=== PATIENT | male | born 1955 | race Caucasian/White ===

== ENCOUNTER 2020-09-11 11:08 | Emergency (ER) | payer BC, SELFPAY ==
--- NOTE | ~2020-09-11 | XR_ITS ---
EXAMINATION: XR chest 1V portable 09/11/2020 12:07 INDICATION: Shortness of breath PROCEDURE: AP portable chest COMPARISON: No prior studies for comparison. FINDINGS: The lungs are clear. Shallow inspiration with crowding of the pulmonary vessels. The cardio mediastinal silhouette is within normal limits. There are no pleural effusions. There is no pneumot horax suspected. IMPRESSION: 1: NO ACUTE CARDIOPULMONARY DISEASE. Reviewed, dictated and finalized at location B.
[2020-09-11 11:20] VITALS: BP 124/82; PULSE 101; RESP 18; TEMP 37; O2SAT 97
--- NOTE | 2020-09-11 11:38 | ECG_ITS ---
Measurements Intervals [place] Rate: 94 P: MD: 0 QRS: -9 QRSD: 86 T: -39 QT: 341 QTc: 427 Interpretive Statements ATRIAL FIBRILLATION CONSIDER INFERIOR INFARCT, AGE INDETERMINATE ABNORMAL ECG Electronically Signed On 09-11-2020 13:12:51 CDT by Carlo Ramey D.O.
[2020-09-11 12:23] VITALS: BP 105/75; PULSE 90; RESP 18; O2SAT 92
[2020-09-11 12:29] LABS: Hematocrit 45.9 % (42.0-52.0); Hemoglobin 15.5 g/dL (14.0-18.0); Lymphocytes Absolute Auto 0.67 K/mm3 (0.9-3.2); Lymphocytes Percent Auto 18.8 % (18.3-44.2); Mean Corpuscular HGB Conc 33.8 g/dl (32-36); Mean Corpuscular Hemoglobin 31.2 pg (26-34); Mean Corpuscular Volume 92.4 fl (80-100); Mean Platelet Volume 10.5 fl (7.4-10.4); Monocytes Absolute Auto 0.3 K/mm3 (0.1-0.6); Monocytes Percent Auto 7.3 % (2.6-8.5); Neutrophils Absolute Auto 2.6 K/mm3 (1.3-6.7); Neutrophils Percent Auto 73.9 % (45.5-73.1); Platelet Count Result 160 k/mm3 (150-375); Red Blood Count 4.97 M/mm3 (4.6-6.20); Red Cell Distribution Width 12.8 % (11.5-14.5); White Blood Count 3.6 K/mm3 (4.5-10.0)
[2020-09-11 12:41] LABS: Anion Gap 8 mmol/L (8-16); Blood Urea Nitrogen 20 mg/dL (9-20); Calcium 8.6 mg/dL (8.4-10.2); Carbon Dioxide 26 mmol/L (22-30); Chloride 100 mmol/L (98-107); Estimated Glomerular Filt Rate > 60; Glucose 143 mg/dL (75-110); Potassium 3.7 mmol/L (3.4-5.0); Sodium 134 mmol/L (137-145)
[2020-09-11 12:48] LABS: NT Pro B Type Natriuretic Pept 458 PG/ML (5-100)
[2020-09-11 13:18] VITALS: BP 107/88; PULSE 85; RESP 16; O2SAT 94
--- NOTE | 2020-09-11 13:19 | ED.GENADULT ---
HPI - General Adult General Chief complaint: Upper Respiratory Infection Stated complaint: COVID + O2 SAT 91% Time Seen by Provider: 09/11/20 11:20 History of Present Illness HPI narrative: Patient is a 64-year-old male who presents ER with complaints of shortness of breath and fatigue. Patient reports that he was diagnosed with COVID-19 on 09/04/2020 and was having symptoms a couple days prior to that. Reports he started feeling some improvement despite having cycles of fever and chills. Reports his temperature rises above 100 ?F at times. Reports over the last 2 days he started feeling much more weak fatigued and short of breath. Related Data Home Medications Medication Instructions Recorded Confirmed amlodipine 09/11/20 hydrochlorothiazide 09/11/20 nebivolol [Bystolic] mg 09/11/20 Allergies Allergy/AdvReac Type Severity Reaction Status Date / Time Tetracyclines Allergy Unknown TAKES MY Verified 09/11/20 11:24 BREATH AWAY Review of Systems Review of Systems: All systems reviewed & are unremarkable except as noted in HPI and below Constitutional: Constitutional: Reports chills, Reports fatigue and Reports fever(s) ENT: Reports nasal congestion and Denies sore throat Cardiovascular: Cardiovascular: Denies chest pain, Denies rapid heart rate and Denies radiating jaw, neck or arm pain Respiratory: Respiratory: Denies cough, Reports dyspnea and Denies wheezing Gastrointestinal: Gastrointestinal: Denies abdominal pain, Denies nausea and Denies vomiting PMFSH Past Medical History Medical History (Updated 09/11/20 @ 14:20 by Reyes Freeman MD) Hypertension Surgical History Surgical History (Updated 09/11/20 @ 14:16 by Reyes Freeman MD) No significant past surgical history Social History Social History (Updated 09/11/20 @ 14:16 by Reyes Freeman MD) Smoking status: Never smoker Gender identity (if verbalized by the patient): Male Exam Narrative: Exam Narrative: GENERAL: Well-appearing, well-nourished, and in no acute distress. HEAD: Normocephalic, atraumatic. CHEST: Clear to auscultation. No respiratory distress. HEART: Irregular regular rate and rhythm. Normal peripheral pulses. ABDOMEN: Soft, nontender, nondistended. EXTREMITIES: Normal range of motion. No edema. SKIN: Warm, dry, no rash. NEURO: Alert and oriented x3. PSYCH: Normal mood and affect. Course Course Emergency Course: Patient resting comfortably. Informed of diagnosis of atrial fibrillation. This may be related to his COVID-19 infection is a has been known to cause structural issues with heart. Additionally due to the COVID-[address] discussing with Dr[address] Shea it is felt patient is at a higher risk for formation of a blood clot. Therefore he should be started on Xarelto 20 mg daily. Educated patient on medication side effects. Discussed return precautions. Patient verbalized understanding. Cardiology office will contact him to schedule follow-up appointment. Vital Signs Vital signs: Vital Signs Temperature 98.6 F 09/11/20 11:20 Pulse Rate 101 H 09/11/20 11:20 Respiratory Rate 18 09/11/20 11:20 Blood Pressure 124/82 09/11/20 11:20 Pulse Oximetry 97 09/11/20 11:20 Temperature 98.6 F 09/11/20 11:20 Pulse Rate 83 09/11/20 14:00 Respiratory Rate 18 09/11/20 14:00 Blood Pressure 118/72 09/11/20 14:00 Pulse Oximetry 94 09/11/20 14:00 Medical Decision Making Vital Signs Vital Signs: Vital Signs Temperature 98.6 F 09/11/20 11:20 Pulse Rate 101 H 09/11/20 11:20 Respiratory Rate 18 09/11/20 11:20 Blood Pressure 124/82 09/11/20 11:20 Pulse Oximetry 97 09/11/20 11:20 Temperature 98.6 F 09/11/20 11:20 Pulse Rate 83 09/11/20 14:00 Respiratory Rate 18 09/11/20 14:00 Blood Pressure 118/72 09/11/20 14:00 Pulse Oximetry 94 09/11/20 14:00 Lab Data Result diagrams: 09/11/20 12:16 09/11/20 12:16
[2020-09-11 14:00] VITALS: BP 118/72; PULSE 83; RESP 18; O2SAT 94
[2020-09-11 14:40] VITALS: BP 123/96; PULSE 99; RESP 23; O2SAT 95
== END 2020-09-11 14:41 | disposition home or self-care (01) ==
PROVIDERS: Emergency Provider Emergency Medicine; PCP Internal Medicine
DX: I48.91 Unspecified atrial fibrillation (principal); Z09 Encounter for follow-up examination after completed treatment for conditions other than malignant neoplasm; I10 Essential (primary) hypertension; Z86.19 Personal history of other infectious and parasitic diseases
CPT/HCPCS: 36415; 71045; 80048; 83880; 85025; 93005; 99283

== ENCOUNTER 2025-05-07 14:36 | Outpatient (CLI) | payer MEDICARE, SELFPAY ==
--- NOTE | ~2025-05-07 | US_ITS ---
EXAM: RENAL ULTRASOUND HISTORY: Disorder of kidney and ureter COMPARISON: None FINDINGS: RIGHT KIDNEY: 6.5 x 12.3 x 6.5 cm. The parenchyma of the right kidney is increased in echogenicity. A single rounded avascular anechoic focus is present within the upper pole of the right kidney measur ing 43 mm in greatest dimension, consistent with a simple cyst for which no further follow-up is need ed. No hydronephrosis or bulky renal calculi. LEFT KIDNEY: 5.8 x 12.8 x 5.2 cm No hydronephrosis or renal calculi. The parenchyma of the left kidney is increased in echogenicity. BLADDER: Only minimally distended, and otherwise unremarkable. IMPRESSION: No hydronephrosis or renal calculi. Findings suggesting medical renal disease. Simple cyst within the right kidney, as detailed above. Reviewed, dictated and finalized at location A.
--- OUTSIDE RECORDS SUMMARY | 2025-05-07 15:46 | XMS_ITS | Clinical Summary ---
Author Organization [facility] Facility Address [address] [address] Care Team Providers Care Pusher Runner Name Role Phone Lukas Hastings MD Primary Care Provider [phone] Encounters Date Type Department Care Team Description 04/12/2025 Documentation Only [facility], [address] [id number] Donna Suarez MD 04/11/2025 Documentation Only [address] [id number] Donna Suarez MD from Last 3 Months Social History Tobacco Use Types Packs/Day Years Used Date Smoking Tobacco: Never Assessed Sex and Gender Information Value Date Recorded Sex Assigned at Not on file Legal Sex Male 9:47 AM EDT Gender Identity Not on file Sexual Orientation Not on file Plan of Treatment Upcoming Encounters Date Type Department Care Team (Late st Contact Info) Description 05/14/2025 10:30 AM CDT Office Visit [address] [phone] Satnam Saldivar MD [address] [place] [phone] Health Maintenance Due Date Last Done Comments Colorectal Cancer Screening: Annual FOBT 2004 Colorectal Cancer Screening: Colonoscopy 2004 Colorectal Cancer Screening: Sigmoidoscopy 2004 Pneumococcal Vaccine: 50+ Ye ars (2 of 2 - PPSV23, PCV20, or PCV21) 08/20/2022 06/25/2022 Influenza Vaccine (Season Ended) 2025 09/16/20 19 Hepatitis B Vaccine Aged Out No longe r eligible based on patient's age to complete this topic Insurance [facility] Medicare Care Teams Pusher Runner Relationship Specialty Start Date End Date Lukas Hastings MD [address] [place] [address] PCP - General Internal Medicine 04/11/25
--- OUTSIDE RECORDS SUMMARY | 2025-05-07 15:46 | XMS_ITS | CONTINUITY OF CARE DOCUMENT ---
Author Name tyrellroshantyrellroshan Address Unknown Organization [facility] Address [address] [place] [address] Phone [phone] Care Team Providers Care Noteman Name Role Phone Juan Chapa MD Unavailable Venkata Gaytan MD Unavailable [phone] Venkata Gaytan MD Unavailable [phone] PROBLEMS Condition Status Date Provider Notes SWATI, mild active Juan katz Study - Mild SWATI - needs titration study. SK HTN active Tades Katz Coronavirus positive 08/2020 active Tades Katz Atrial fibrillation active Taeds Katz Shortness of breath active Viola Katz Cardiology examination active Tades Katz Hyperlipidemia active Viola Katz Snoring completed - Chinmay Roberts ENCOUNTERS Date Type Provider Location Encounter Diag nosis - In-person encounter Office Visit Juan Chapa MD [facility] [place] [facility] Snoring - In-person encounter Office Visit Juan Chapa MD [place] [facility] - In-person encounter Office Visit [facility] - In-person encounter Office Visit Juan Chapa MD [place] [facility] Hyperlipidemia - In-person encounter Office Visit Juan Chapa MD [place] [facility] HTNCoronavirus positive 08/2020Atrial fibrillationShortness of breathCardiology examination VITAL SIGNS Date Observation Value Provider Body Mass Index (Ratio) 36.48 kg/m2 Kian Chapa MD weight E&M 269 [lb_av] Christopher Destin al blood pressure, diastolic 72 mm[Hg] Li nkLogic blood pressure, systolic 112 mm[Hg] Marilou kLogic blood pressure, cuff size large Ke rri Gruenenfelder blood pressure, diastolic 72 mm[Hg] Ke rri Gruenenfelder blood pressure, systolic 112 mm[Hg] Ker ri Gruenenfelder oxygen saturation, oximetry 96 % Marie Grdarrellnenfelder respiratory rate E&M 14 /min Marie G gaetanoenenfelder pulse rate 57 /min Marie Grminae er weight E&M 269 [lb_av] Marie Grrosarionfe lder height E&M 72 [in_i] Marie Grdarrellnenfe er Body Mass Index (Ratio) 37.97 kg/m2 [facility] blood pressure, cuff size large Ke rri Gruenenfelder blood pressure, diastolic 86 mm[Hg] Ke rri Gruenenfelder blood pressure, systolic 142 mm[Hg] Ker ri Gruenenfelder oxygen saturation, oximetry 96 % Marie Gruenenfelder respiratory rate E&M 16 /min Marie G gaetanoenenfelder pulse rate 59 /min Marie Grrosarionfe lder weight E&M 280 [lb_av] Marie Gruenenfe lder height E&M 72 [in_i] Marie Gruenenfe [facility] Body Mass Index (Ratio) 35.94 kg/m2 Kian Chapa MD pulse rate 65 /min [facility] blood pressure, diastolic 70 mm[Hg] [facility], systolic 128 mm[Hg] Temitope ttany [facility] oxygen saturation, oximetry 97 % [facility] weight E&M 265 [lb_av] [facility] blood pressure, resting Yes [facility] respiratory rate E&M 16 /min [facility] height E&M 72 [in_i] [facility] Body Mass Index (Ratio) 35.67 kg/m2 [facility] blood pressure, cuff size large Ke rri Gruenenfelder blood pressure, diastolic 70 mm[Hg] Ke rri Gruenenfelder blood pressure, systolic 130 mm[Hg] Ker ri Gruenenfelder oxygen saturation, oximetry 98 % Marie Gruenenfelder respiratory rate E&M 16 /min Marie G ruenenfelder pulse rate 78 /min Marie Gruenenfe [facility] weight E&M 263 [lb_av] Marie Gruenenfe [facility] height E&M 72 [in_i] Marie Gruenenfe [facility] Body Mass Index (Ratio) 35.80 kg/m2 [facility] blood pressure, cuff size large Ke rri Gruenenfelder blood pressure, diastolic 60 mm[Hg] Ke rri Gruenenfelder blood pressure, systolic 100 mm[Hg] Ker ri Gruenenfelder oxygen saturation, oximetry 97 % Marie Gruenenfelder respiratory rate E&M 18 /min Marie G ruenenfelder pulse rate 61 /min Marie Gruenenfe er weight E&M 264 [lb_av] Marie Mercedes lder height E&M 72 [in_i] Marie Mercedes er ALLERGIES Allergy Name Onset Date Reaction Criticality Status TETRACYCLINE Low Criticality active RESULTS Date Observation Value Provider Reference Range Interpretation Location magnesium, serum 2.1 mg/dL [facility] 1.6-2.3 lipoprotein, beta, serum, point, quantitative, calculated 78 mg/dL [facility] 0-99 HDL cholesterol, serum 51 mg/dL [facility] >39 triglyceride, serum, random 64 mg/dL [facility] 0-149 cholesterol, serum 142 mg/dL [facility] [phone]/05/0 6 platelet count 213 X10E3/UL [facility] [phone]/05/0 6 red blood cell distribution width 12.6 % [facility] 11.6-15.4 mean corpuscular hemoglobin concentration, RBC 34.2 G/DL [facility] 31.5-35.7 mean corpuscular hemoglobin, RBC 31.7 pg [facility] 26.6-33.0 mean corpuscular volume, RBC 93 fL [facility] 79-97 hematocrit, blood 44.7 % [facility] 37.5-51.0 hemoglobin, blood 15.3 g/dL [facility] 13.0-17.7 erythrocyte (RBC) count 4.82 X10E6/UL [facility] 4.14-5.80 leukocyte count, blood 4.6 X10E3/UL [facility] 3.4-10.8 alanine aminotransferase (SGPT), serum 40 1/L [facility] 0-44 aspartate aminotransferase (SGOT), serum 33 1/L [facility] 0-40 alkaline phosphatase, serum 72 1/L [facility] 39-117 bilirubin, serum, total 0.7 mg/dL [facility] 0.0-1.2 albumin/globulin ratio, serum 1.6 [facility] 1.2-2.2 globulin, serum 2.8 [facility] 1.5-4.5 albumin, serum 4.4 g/dL [facility] 3.8-4.8 protein, total, serum 7.2 g/dL [facility] 6.0-8.5 calcium, serum 9.6 mg/dL [facility] 8.6-10.2 carbon dioxide, venous blood 26 mmol/L [facility] 20-29 chloride, serum 100 mmol/L [facility] 96-106 potassium, serum 4.2 mmol/L [facility] 3.5-5.2 sodium, serum 138 mmol/L [facility] [phone]/05/0 6 urea nitrogen/creatinine ratio, serum 20 [facility] 10-24 eGFR if 68 mL/min/{1 .73_m2} [facility] >59 eGFR if not 59 mL/min/{1 .73_m2} [facility] >59 Low creatinine, serum 1.27 mg/dL [facility] 0.76-1.27 urea nitrogen, blood 25 mg/dL [facility] 8-27 blood glucose, random 92 mg/dL [facility] 65-99 thyroid stimulating hormone, serum 1.560 u[IU]/mL [facility] 0.450-4.500 lipoprotein, beta, serum, point, quantitative, calculated 162 mg/dL [facility] 0-99 High HDL cholesterol, serum 50 mg/dL [facility] >39 triglyceride, serum, random 87 mg/dL [facility] 0-149 cholesterol, serum 227 mg/dL [facility] 100-199 High basophil count, absolute 0.0 x10E3/uL [facility] 0.0-0.2 Eosinophil Absolute Count 0.0 X10E3/UL [facility] 0.0-0.4 monocyte count, blood, automated 0.4 X10E3/UL [facility] 0.1-0.9 lymphocyte count, blood, automated 1.2 X10E3/UL [facility] 0.7-3.1 6 Absolute Neutrophils 2.5 X10E3/UL [facility] 1.4-7.0 6 basophils as percent of blood leukocytes 1 % [facility] Not Estab. 6 eosinophils as percent of blood leukocytes 1 % [facility] Not Estab. 6 monocytes as percent of blood leukocytes 9 % [facility] Not Estab. 6 lymphocytes as percent of blood leukocytes 28 % [facility] Not Estab. 6 neutrophils as percent of blood leukocytes 61 % [facility] Not Estab. 6 platelet count 290 X10E3/UL [facility] [phone]/11/0 6 red blood cell distribution width 12.8 % [facility] 11.6-15.4 6 mean corpuscular hemoglobin concentration, RBC 32.7 G/DL [facility] 31.5-35.7 6 mean corpuscular hemoglobin, RBC 30.7 pg [facility] 26.6-33.0 6 mean corpuscular volume, RBC 94 fL [facility] 79-97 6 hematocrit, blood 45.5 % [facility] 37.5-51.0 hemoglobin, blood 14.9 g/dL [facility] 13.0-17.7 erythrocyte (RBC) count 4.85 X10E6/UL [facility] 4.14-5.80 6 leukocyte count, blood 4.2 X10E3/UL [facility] 3.4-10.8 6 alanine aminotransferase (SGPT), serum 39 1/L [facility] 0-44 6 aspartate aminotransferase (SGOT), serum 22 1/L [facility] 0-40 6 alkaline phosphatase, serum 50 1/L [facility] 39-117 6 bilirubin, serum, total 0.9 mg/dL [facility] 0.0-1.2 6 albumin/globulin ratio, serum 1.5 [facility] 1.2-2.2 6 globulin, serum 2.7 [facility] 1.5-4.5 6 albumin, serum 4.0 g/dL [facility] 3.8-4.8 6 protein, total, serum 6.7 g/dL [facility] 6.0-8.5 6 calcium, serum 9.7 mg/dL [facility] 8.6-10.2 6 carbon dioxide, venous blood 24 mmol/L [facility] 20-29 6 chloride, serum 103 mmol/L [facility] 96-106 6 potassium, serum 5.5 mmol/L [facility] 3.5-5.2 High 6 sodium, serum 140 mmol/L [facility] [phone]/11/0 6 urea nitrogen/creatinine ratio, serum 14 [facility] 10-24 6 eGFR if 70 mL/min/{1 .73_m2} [facility] >59 6 eGFR if not 60 mL/min/{1 .73_m2} [facility] >59 6 creatinine, serum 1.25 mg/dL [facility] 0.76-1.27 6 urea nitrogen, blood 18 mg/dL [facility] 8-27 6 blood glucose, random 91 mg/dL [facility] 65-99 HISTORY OF MEDICATION USE Medication Status Instructions Dates Provider Indications Com ments atorvastatin 40 mg tablet active Take 1 tablet by mouth once a day Marie Vyas flecainide 100 mg tablet active 1 tablet by mouth twice a day Viola Katz magnesium oxide 400 mg (241.3 mg magnesium) tablet active Take 1 tablet by mouth twice a day Marie Vyas amlodipine 10 mg tablet active 1 tablet by mouth once a day Marie Asael Bystolic 10 mg tablet active 1 tablet b y mouth once a day Marie Asael hydrochlorothiazide 25 mg tablet active once a day Marie Asael Xarelto 20 mg tablet active 1 tablet by mouth every night Marie Asael SOCIAL HISTORY Date Observation Value Provider number of grandchildren Juan Roberts social history E&M S moking History: Lynn everett has never smoked. Chinmay Roberts smoking status Never smoker Chinmay Roberts social history reviewed E&M revi ewed - no changes required Chinmay Roberts social history E&M S moking History: Lynn everett has never smoked. Viola Katz social history reviewed E&M revi ewed - no changes required Viola Katz smoking status Never smoker Marie andre social history reviewed E&M revi ewed - no changes required Chinmay Messer smoking status Never smoker Carolyne villa social history E&M S moking History: Lynn everett has never smoked. Viola Katz social history reviewed E&M revi ewed - no changes required Viola Katz smoking status Never smoker Marie andre social history E&M S moking History: Lynn everett has never smoked. Viola Katz social history reviewed E&M revi ewed - no changes required Viola Katz smoking status Never smoker Marie andre INSURANCE PROVIDERS Payer name Policy type / Coverage type [place] [employer] party ID [facility] MEDICARE COMPLETE HMO Other [id number] ADVANCE DIRECTIVES Name Date DISCUSSED - NO DECISION MADE TREATMENT PLAN Date Name Performer [id number],S, T he patient is using CPAP on a regular basis. The patient has been benefiting from therapy and should continue use. Chinmay Roberts [id number],S, I n sinus O K to take two additional tabs of flecainide (up to a TOTAL of 400mg a day including regular dose) on days when you feel out of rhythm. If you have to do this more than once a month, please give us a call so we can adjust your medications. telesetnry 03/2021 R hythm: Sinus Bradycardia w/AV Block 1 A verage Heart Rate was 55 bpm M inimum Heart Rate was 44 bpm M aximum Heart Rate was 83 bpm V entricular Ectopy was 0, with 0 V-Pairs and 0 V-Runs S upraVentricular Ectopy was 54, with 0 SV-Runs P auses more than 2.50 seconds were 0 His updated medication list for this problem includes: Bystolic 10 Mg Tablet (Nebivolol) ..... 1 tablet by mouth once a day Flecainide 100 Mg Tablet (Flecainide) ..... 1 tablet by mouth twice a day Chinmay Roberts [id number],B, B P today: 112/72 P rior BP: 142/86 (04/18/2021) H is updated medication list for this problem includes: Bystolic 10 Mg Tablet (Nebivolol) ..... 1 tablet by mouth once a day Amlodipine 10 Mg Tablet (Amlodipine) ..... 1 tablet by mouth once a day Hydrochlorothiazide 25 Mg Tablet (Hydrochlorothiazide) ..... Once a day Chinmay Zimmermatthew [id number],S, m ost recent LDL 78 03/2021 His updated medication list for this problem includes: Atorvastatin 40 Mg Tablet (Atorvastatin) ..... 1 tablet by mouth once a day Chinmay Zimmermatthew [id number],S, D LCO 96 on PFTS His updated medication list for this problem includes: Amlodipine Besylate 10 Mg Oral Tablet (Amlodipine besylate) ..... One tab by mouth daily Bystolic 10 Mg Oral Tablet (Nebivolol hcl) ..... One tab. daily Hydrochlorothiazide 25 Mg Oral Tablet (Hydrochlorothiazide) ..... Once a day Chinmay Roberts Electrophysiology: T he patient is using CPAP on a regular basis. The patient has been benefiting from therapy and should continue use. Chinmay Roberts Electrophysiology: I n sinus O K to take two additional tabs of flecainide (up to a TOTAL of 400mg a day including regular dose) on days when you feel out of rhythm. If you have to do this more than once a month, please give us a call so we can adjust your medications. telesetnry 03/2021 R hythm: Sinus Bradycardia w/AV Block 1 A verage Heart Rate was 55 bpm M inimum Heart Rate was 44 bpm M aximum Heart Rate was 83 bpm V entricular Ectopy was 0, with 0 V-Pairs and 0 V-Runs S upraVentricular Ectopy was 54, with 0 SV-Runs P auses more than 2.50 seconds were 0 His updated medication list for this problem includes: Bystolic 10 Mg Tablet (Nebivolol) ..... 1 tablet by mouth once a day Flecainide 100 Mg Tablet (Flecainide) ..... 1 tablet by mouth twice a day Chinmay Roberts Electrophysiology: B P today: 112/72 P rior BP: 142/86 (04/18/2021) H is updated medication list for this problem includes: Bystolic 10 Mg Tablet (Nebivolol) ..... 1 tablet by mouth once a day Amlodipine 10 Mg Tablet (Amlodipine) ..... 1 tablet by mouth once a day Hydrochlorothiazide 25 Mg Tablet (Hydrochlorothiazide) ..... Once a day Chinmay Roberts Electrophysiology: m ost recent LDL 78 03/2021 His updated medication list for this problem includes: Atorvastatin 40 Mg Tablet (Atorvastatin) ..... 1 tablet by mouth once a day Chinmay Roberts Electrophysiology: D LCO 96 on PFTS His updated medication list for this problem includes: Amlodipine Besylate 10 Mg Oral Tablet (Amlodipine besylate) ..... One tab by mouth daily Bystolic 10 Mg Oral Tablet (Nebivolol hcl) ..... One tab. daily Hydrochlorothiazide 25 Mg Oral Tablet (Hydrochlorothiazide) ..... Once a day Chinmay Zimmermatthew Electrophysiology Fo llow up 14: s odium restriction, weightloss and exercise advised B P today: 142/86 P rior BP: 128/70 (10/16/2020) Labs Reviewed: C reat: 1.27 (03/27/2021) C hol: 142 (03/27/2021) HDL: 51 (03/27/2021) His updated medication list for this problem includes: Amlodipine Besylate 10 Mg Oral Tablet (Amlodipine besylate) ..... One tab by mouth daily Bystolic 10 Mg Oral Tablet (Nebivolol hcl) ..... One tab. daily Hydrochlorothiazide 25 Mg Oral Tablet (Hydrochlorothiazide) ..... Once a day Orders: E KG (CPT-12191) Viola Katz Electrophysiology Fo llow up 14: m ost recent LDL 78 03/2021 His updated medication list for this problem includes: Atorvastatin Calcium 40 Mg Oral Tablet (Atorvastatin calcium) ..... One tab daily Viola Katz Electrophysiology Fo llow up 14: I n sinus O K to take two additional tabs of flecainide (up to a TOTAL of 400mg a day including regular dose) on days when you feel out of rhythm. If you have to do this more than once a month, please give us a call so we can adjust your medications. telesetnry 03/2021 R hythm: Sinus Bradycardia w/AV Block 1 A verage Heart Rate was 55 bpm M inimum Heart Rate was 44 bpm M aximum Heart Rate was 83 bpm V entricular Ectopy was 0, with 0 V-Pairs and 0 V-Runs S upraVentricular Ectopy was 54, with 0 SV-Runs P auses more than 2.50 seconds were 0 His updated medication list for this problem includes: Flecainide Acetate 100 Mg Oral Tablet (Flecainide acetate) ..... One tab twice a day Bystolic 10 Mg Oral Tablet (Nebivolol hcl) ..... One tab. daily Viola [place] Electrophysiology Fo llow up 14: O rders: S pieter Study Home (CPT-20273) Josedes [facility] Cardiology: O rders: 9 12 Minor (CPT-06916) L IPID PANEL (7600) C OMPREHENSIVE METABOLIC PANEL, W/EGFR (75115) C BC (H/H, RBC, INDICES, WBC, PLT) (1759) M AGNESIUM (622) BP today: 128/70 P rior BP: 130/70 (09/27/2020) Labs Reviewed: C reat: 1.25 (09/27/2020) C hol: 227 (09/27/2020) HDL: 50 (09/27/2020) Juan Chapa MD Cardiology: O rders: 9 12 Minor (CPT-49142) L IPID PANEL (7600) C OMPREHENSIVE METABOLIC PANEL, W/EGFR (88218) C BC (H/H, RBC, INDICES, WBC, PLT) (1759) M AGNESIUM (622) Juan Chapa MD Cardiology: R ecent cardioversion, regular rate and rhythm today H is updated medication list for this problem includes: Flecainide Acetate 100 Mg Oral Tablet (Flecainide acetate) ..... One tab twice a day Bystolic 10 Mg Oral Tablet (Nebivolol hcl) ..... One tab. daily Orders: E KG (CPT-55931) 9 9212 Minor (CPT-35582) L IPID PANEL (7600) C OMPREHENSIVE METABOLIC PANEL, W/EGFR (61173) C BC (H/H, RBC, INDICES, WBC, PLT) (1759) M AGNESIUM (622) Juan Chapa MD Electrophysiology Fo llow up needs letter : a symptomatic t ested negative on nasal swab 09/20 w ould avoid LORENZO Viola Katz Electrophysiology Fo llow up needs letter :Orders: C ardioversion - [facility] (CPT-94795) N o LORENZO as recently COVID positive, plan to be on anticoag xarelto for at least 3 weeks by time of procedure Start flecainide 1 week tele: Ish hythm: Atrial Fibrillation with rare ventricular ectopy. T he average heart rate was 79 BPM with a maximum of 162 and a minimum of 45 BPM. V entricular ectopy was rare and observed as isolated beats. R eport date: 09/26/2020. 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 One tab twice a day Bystolic 10 Mg Oral Tablet (Nebivolol hcl) ..... One tab. daily Sep 20, 2020 Patient was unaware of Afib and this was discovered when he went to hospital for katharina baron dizziness, palpitations S tart dilt, check monitors Cullenalex [facility] Electrophysiology Fo llow up needs letter : R ecent LDL 162 s tart statin His updated medication list for this problem includes: Atorvastatin Calcium 40 Mg Oral Tablet (Atorvastatin calcium) ..... One tab daily Viola Katz Electrophysiology Fo llow up needs letter : Maria M LCO 96 on recent PFTS H is updated medication list for this problem includes: Amlodipine Besylate 10 Mg Oral Tablet (Amlodipine besylate) ..... One tab by mouth daily Bystolic 10 Mg Oral Tablet (Nebivolol hcl) ..... One tab. daily Hydrochlorothiazide 25 Mg Oral Tablet (Hydrochlorothiazide) ..... Once a day Viola Katz Electrophysiology Fo llow up needs letter : P t switching to medicare in 12/2020 D iscussed possible medication change to replace bystolic BP today: 130/70 P rior BP: 100/60 (09/20/2020) Labs Reviewed: C reat: 1.25 (09/27/2020) C hol: 227 (09/27/2020) HDL: 50 (09/27/2020) His updated medication list for this problem includes: Amlodipine Besylate 10 Mg Oral Tablet (Amlodipine besylate) ..... One tab by mouth daily Bystolic 10 Mg Oral Tablet (Nebivolol hcl) ..... One tab. daily Hydrochlorothiazide 25 Mg Oral Tablet (Hydrochlorothiazide) ..... Once a day Viola Katz Electrophysiology:EC HO CONCLUSIONS: 1 . Patient is in atrial fibrillation. Normal left ventricular systolic function. Normal left ventricular size. Normal left ventricular w all thickness. Unable to determine diastolic function due to cardiac arrhythmia. E/E': 7.9. Left ventricular ejection fraction is m easured at 60 %. 2 . Left atrium is upper limits of normal in size. 3 . There is non-specific thickening of the mitral valve leaflets. There is trace physiologic mitral valve regurgitation. E lectronically Signed By: Juan Blankenship 2 12:31:05 CDT Viola Katz Electrophysiology:Te sted positive early 08/2020 A symptomatic Orders: C ovid Antibody Igg (81630) C ovid Antibody IgM (LC) (282638) C ovid Antibody IgA (LC) (274739) C OVID19 High Affinity Antibodies (LC) (773145) Viola Katz Electrophysiology: B P today: 100/60 His updated medication list for this problem includes: Amlodipine Besylate 10 Mg Oral Tablet (Amlodipine besylate) ..... One tab by mouth daily Bystolic 10 Mg Oral Tablet (Nebivolol hcl) ..... One tab. daily Hydrochlorothiazide 25 Mg Oral Tablet (Hydrochlorothiazide) ..... Once a day Viola Katz Electrophysiology:SUNG curry was unaware of Afib and this was discovered when he went to hospital for covid D enies dizziness, palpitations S tart dilt, check monitors Orders: M obile Cardiac Tele (CPT-79719) C omplete Echo (CPT-35248) H olter Monitor 24 Hr (CPT-81822) His updated medication list for this problem includes: Bystolic 10 Mg Oral Tablet (Nebivolol hcl) ..... One tab. daily Viola Katz Date Name Monitor - Telemetry (Mobile Cardiac) Stress Routine Complete Echo Sleep Study Titratio n Sleep Study Home MAGNESIUM CBC (H/H, RBC, INDIC ES, WBC, PLT) COMPREHENSIVE METABO LIC PANEL, W/EGFR LIPID PANEL DLCO - 24262 FRC - 69726 FVC - 58148 Cardioversion - [facility] COVID19 nasal swab ( LC) TSH, 3RD GENERATION W/REFLEX TO FT4 COMPREHENSIVE METABO LIC PANEL W/EGFR LIPID PANEL CBC (INCLUDES DIFF/P LT) COVID19 High Affinit y Antibodies (LC) Covid Antibody IgA ( LC) Covid Antibody IgM ( LC) COVID19 nasal swab ( LC) TSH, free T4, total T3 LIPID PANEL CBC (H/H, RBC, INDIC ES, WBC, PLT) COMPREHENSIVE METABO LIC PANEL, W/EGFR COVID19 nasal swab ( LC) Holter Monitor 24 Hr COVID19 High Affinit y Antibodies (LC) Covid Antibody IgA ( LC) Covid Antibody IgM ( LC) Complete Echo Mobile Cardiac Tele HISTORY OF PROCEDURES Procedure Date Procedure Name Provider Procedure Notes S tatus EKG Juan avila MD completed Event Monitor Juan avila MD completed EKG Juan avila MD completed EKG Juan avila MD completed Mobile Cardiac Telem etry - Tech Juan Chapa MD completed Mobile Cardiac Telem etry - Prof Juan Chapa MD completed EKG Juan avila MD completed FVC / MVV with bronchodilator - 95993 Juan Chapa MD completed FRC - 71302 Juan avila MD completed SpO2 w/o 6min walk/titration Juan Chapa MD completed DLCO - 17726 Juan avila MD completed EKG Juan avila MD completed
== END 2025-05-07 14:37 | disposition home or self-care (01) ==
PROVIDERS: PCP Internal Medicine; Visit Provider Internal Medicine
DX: N28.9 Disorder of kidney and ureter, unspecified (principal); N28.1 Cyst of kidney, acquired
CPT/HCPCS: 76775